=== PATIENT | female | born 1995 | race Asian ===

== ENCOUNTER 2017-07-05 17:55 | Emergency (ER) | payer OTHER ==
[~2017-07-05] VITALS: Ht 171.5 cm; Wt 60.3 kg
[2017-07-05 18:11] VITALS: TEMP 36.8; Ht 171.5 cm; Wt 60.3 kg
[2017-07-05] MEDS ORDERED: ONDA4TAB46 PO (19:25)
[2017-07-05] MEDS ORDERED: ONDANSETRON INJ 2 MG/ML 2 ML VIAL IV STA (19:36)
[2017-07-05] MEDS ORDERED: SODIUM CHLORIDE 0.9% 1000ML 1,000 ML IV STA (19:36)
--- NOTE | 2017-07-05 19:55 | EMERGENCY ROOM VISIT NOTE ---
History Report prepared by rAacelis: Deidre Aleman Under the Supervision of: Dr. Julian Collier M.D. First contact with patient: 19:15 Chief Complaint: VOMITING Stated Complaint: ABDOMINAL PAIN, POSSIBLE BLOCKAGE- [facility] Nursing Triage Summary: Vomitting last four days, worsening today. Today vomitted 6 times. C/o nausea and dizziness. History of Present Illness The patient is a 21 year old female who presents to the Emergency Room with complaints of vomiting beginning four days ago. The patient reports six episodes of vomiting today. She states her vomit was yellow in color. She denies any vaginal bleeding, blood in her vomit, chest pain, shortness of breath , abdominal pain, or fever. She denies any episodes of syncope. The patient is but she is unsure of how far along she is. The patient's last menstrual period was May 20. Source of History: patient Onset: today Position: other (generalized) Quality: other (vomiting) Timing: other (episoded) Associated Symptoms: + vomiting, No fevers, No abdominal pain Review of Systems See HPI for pertinent positives and negatives. A total of ten systems were reviewed and were otherwise negative. Family History Patient reports no known family medical history. Social History Smoking Status: Never Smoker Marital Status: single Occupation Status: [employer] student Current/Historical Medications Scheduled Multivit-Min W/Fe-Fa (), 1 TAB PO DAILY Scheduled PRN Doxylamine-Pyridoxine (Diclegis), 1 TAB PO BID PRN for Nausea Ondansetron Hcl (Zofran), 4 MG PO TODAY PRN for Nausea Allergies Coded Allergies: No Known Allergies (Unverified , 07/05/17) Physical Exam Vital Signs Date Time Temp Pulse Resp B/P (MAP) Pulse Ox O2 Delivery O2 Flow Rate FiO2 07/05/17 22:05 65 18 98/60 99 07/05/17 20:43 67 18 96/59 98 Room Air 07/05/17 18:11 36.8 83 16 99/64 95 Room Air Physical Exam Physical Exam GENERAL: She is oriented to person, place, and time. She appears well- developed and well-nourished. She does not appear distressed. ____ HENT: Exam performed. Head: Normocephalic and atraumatic. Right Ear: External ear normal. No mastoid tenderness. Left Ear: External ear normal. No mastoid tenderness. Mouth/Throat: The oropharynx is clear and moist. No trismus in the jaw. No dental abscesses or uvula swelling. No oropharyngeal exudate or tonsillar abscesses. ____ EYES: Conjunctivae and EOM are normal. Pupils are equal, round, and reactive to light. Right eye exhibits no discharge. Left eye exhibits no discharge. No scleral icterus. ____ NECK: Normal range of motion. Neck supple. No JVD present. No spinous process tenderness present. No carotid bruit present. No rigidity. No tracheal deviation and normal range of motion present. No Brudzinski's sign and no Kernig 's sign noted. ____ CV: Normal rate, regular rhythm, normal heart sounds and intact distal pulses. There is no peripheral edema. Palpable radial pulses bue. ____ PULM/CHEST: Effort normal and breath sounds normal. No respiratory distress. No stridor. She has no wheezes. She has no rales. Chest Wall: She exhibits no tenderness. ____ ABD: The abdomen is soft. Bowel sounds are normal. She has no distension. No mass is present. There is no tenderness. There is no rebound, no guarding, no Schneider's sign and no tenderness at McBurney's point. Rovsig negative MUSC/SKEL: Normal range of motion. There is no peripheral edema, tenderness or deformity. LYMPH: No cervical adenopathy. ____ NEURO: She is alert and oriented to person, place, and time. She has normal strength. No cranial nerve deficit or sensory deficit. Coordination and gait normal. GCS eye subscore is 4. GCS verbal subscore is 5. GCS motor subscore is 6. cerbellar tests wnl. ____ SKIN: Skin is warm and dry. She is not diaphoretic. ____ PSYCH: She has a normal mood and affect. Her behavior is normal. Judgment and thought content normal. ____ Medical Decision & Procedures Laboratory Results 07/05/17 19:40 Red Blood Count 4.77, Mean Corpuscular Volume 85.3, Mean Corpuscular Hemoglobin 28.9, Mean Corpuscular Hemoglobin Concent 33.9, Mean Platelet Volume 9.2, Neutrophils (%) (Auto) 63.0, Lymphocytes (%) (Auto) 24.8, Monocytes (%) (Auto) 9.1, Eosinophils (%) (Auto) 2.6, Basophils (%) (Auto) 0.3, Neutrophils # (Auto) 5.49, Lymphocytes # (Auto) 2.16, Monocytes # (Auto) 0.79, Eosinophils # (Auto) 0.23, Basophils # (Auto) 0.03 07/05/17 19:40 Test 07/05/17 19:40 07/05/17 19:50 White Blood Count 8.72 K/uL (4.8-10.8) Red Blood Count 4.77 M/uL (4.2-5.4) Hemoglobin 13.8 g/dL (12.0-16.0) Hematocrit 40.7 % (37-47) Mean Corpuscular Volume 85.3 fL (80-100) Mean Corpuscular Hemoglobin 28.9 pg (25-34) Mean Corpuscular Hemoglobin Concent 33.9 g/dl (32-36) Platelet Count 311 K/uL (130-400) Mean Platelet Volume 9.2 fL (7.4-10.4) Neutrophils (%) (Auto) 63.0 % Lymphocytes (%) (Auto) 24.8 % Monocytes (%) (Auto) 9.1 % Eosinophils (%) (Auto) 2.6 % Basophils (%) (Auto) 0.3 % Neutrophils # (Auto) 5.49 K/uL (1.4-6.5) Lymphocytes # (Auto) 2.16 K/uL (1.2-3.4) Monocytes # (Auto) 0.79 K/uL (0.11-0.59) Eosinophils # (Auto) 0.23 K/uL (0-0.5) Basophils # (Auto) 0.03 K/uL (0-0.2) RDW Standard Deviation 41.0 fL (36.4-46.3) RDW Coefficient of Variation 13.1 % (11.5-14.5) Immature Granulocyte % (Auto) 0.2 % Immature Granulocyte # (Auto) 0.02 K/uL (0.00-0.02) Anion Gap 6.0 mmol/L (3-11) Est Creatinine Clear Calc Drug Dose 132.4 ml/min Estimated GFR () 147.8 Estimated GFR (Non- 127.6 BUN/Creatinine Ratio 12.5 (10-20) Calcium Level 10.3 mg/dl (8.5-10.1) Influenza Type A Antigen Neg for Influ A (NEG) Influenza Type B Antigen Neg for Influ B (NEG) Urine Color YELLOW Urine Appearance CLEAR (CLEAR) Urine pH 5.5 (4.5-7.5) Urine Specific [place] 1.013 (1.000-1.030) Urine Protein NEG (NEG) Urine Glucose (UA) NEG (NEG) Urine Ketones NEG (NEG) Urine Occult Blood NEG (NEG) Urine Nitrite NEG (NEG) Urine Bilirubin NEG (NEG) Urine Urobilinogen NEG (NEG) Urine Leukocyte Esterase LARGE (NEG) Urine WBC (Auto) >30 /hpf (0-5) Urine RBC (Auto) 0-4 /hpf (0-4) Urine Hyaline Casts (Auto) 1-5 /lpf (0-5) Urine Epithelial Cells (Auto) >30 /lpf (0-5) Urine Bacteria (Auto) NEG (NEG) Urine Test POS (NEG) Laboratory results reviewed by me Medications Administered Medications (Trade) Dose Ordered Sig/Yovana Route Start Time Stop Time Status Last Admin Dose Admin Sodium Chloride 1,000 ml @ 999 mls/hr Q1H1M STAT IV 07/05/17 19:36 07/05/17 20:36 DC 07/05/17 19:45 999 MLS/HR Ondansetron HCl (Zofran Inj) 4 mg NOW STAT IV 07/05/17 19:36 07/05/17 19:38 DC 07/05/17 19:45 4 MG ED Course 1933: The patient was evaluated in room C8. A complete history and physical exam was performed. 1935: Ordered Zofran Inj 4 mg IV, Sodium Chloride 1000 ml @ 999 mls/hr IV. 2138: Vital signs are stable. Blood pressure is stable, patient is petite. Serial abdominal exams revealed no tenderness. PO was tolerated in the ED, patient will be discharged home 2158: DISCHARGE - Plan of care discussed with patient and questions answered. The patient was given both verbal and printed discharge instructions. The patient verbalized understanding and ability to comply. The patient is to seek outpatient follow up as noted in the discharge instructions. The patient verbalized understanding and ability to comply. The patient is discharged in stable condition. The patient was instructed to return for worsening symptoms. Medical Decision Vital signs are stable. Blood pressure is stable, patient is petite. Labs within normal limits. Serial abdominal exams revealed no tenderness. PO was tolerated in the ED, patient will be discharged home Medication Reconcilliation Current Medication List: was personally reviewed by me Blood Pressure Screening Patient's blood pressure: Normal blood pressure Impression Primary Impression: Nausea and vomiting Scribe Attestation The scribe's documentation has been prepared under my direction and personally reviewed by me in its entirety. I confirm that the note above accurately reflects all work, treatment, procedures, and medical decision making performed by me. The chart was completed utilizing [employer] Speech voice recognition software. Grammatical errors, random word insertions, pronoun errors, and incomplete sentences are an occasional consequence of this system due to software limitations, ambient noise, and hardware issues. Any formal questions or concerns about the content, text, or information contained within the body of this dictation should be directly addressed to the physician for clarification. Departure Information Dispostion Home / Self-Care Prescriptions Multivit-Min W/Fe-Fa () 1 Tab Tab 1 TAB PO DAILY for 90 Days, #90 TAB 3 Refills Prov: Julian Collier M.D. 07/05/17 Doxylamine-Pyridoxine (DICLEGIS) 1 Tab Tab 1 TAB PO BID Y for Nausea, #14 TAB Prov: Julian Collier M.D. 07/05/17 Referrals No Doctor, Assigned (PCP) Forms HOME CARE DOCUMENTATION FORM, IMPORTANT VISIT INFORMATION Patient Instructions ED Nausea Vomiting, My [facility] Additional Instructions Return to the emergency department if you develop fever greater than 100.4, lower abdominal cramping, vaginal bleeding, vaginal discharge, bloody vomit, bloody urine, bloody stools, or lose consciousness. Follow-up with [facility]. Problem Qualifiers Primary Impression: Nausea and vomiting Vomiting type: unspecified Vomiting Intractability: non-intractable Qualified Codes: R11.2 - Nausea with vomiting, unspecified
[2017-07-05 19:57] LABS: BASO % 0.3 %; BASO ABS # 0.03 K/uL (0-0.2); EOS % 2.6 %; EOS ABS # 0.23 K/uL (0-0.5); HEMATOCRIT 40.7 % (37-47); HEMOGLOBIN 13.8 g/dL (12.0-16.0); IG# 0.02 K/uL (0.00-0.02); LYMPH % 24.8 %; LYMPH ABS # 2.16 K/uL (1.2-3.4); MEAN CELL VOLUME 85.3 fL (80-100); MEAN CORPUSCULAR HEMOGLOBIN 28.9 pg (25-34); MEAN CORPUSCULAR HGB CONC 33.9 g/dl (32-36); MEAN PLATELET VOLUME 9.2 fL (7.4-10.4); MONO % 9.1 %; MONO ABS # 0.79 K/uL (0.11-0.59); NEUT ABS # 5.49 K/uL (1.4-6.5); PLATELET COUNT 311 K/uL (130-400); RED CELL DISTRIBUTION WIDTH CV 13.1 % (11.5-14.5); WHITE BLOOD COUNT 8.72 K/uL (4.8-10.8)
[2017-07-05 20:18] LABS: CALCIUM 10.3 mg/dl (8.5-10.1); CREATININE 0.64 mg/dl (0.60-1.20); POTASSIUM 3.8 mmol/L (3.5-5.1)
[2017-07-05 20:33] LABS: INFLUENZA B ANTIGEN Neg for Influ B (NEG)
[2017-07-05] MEDS ORDERED: DOXY30TA PO (21:52)
[2017-07-05] MEDS ORDERED: PRENTAB65 PO (21:53)
[2017-07-05 22:05] VITALS: BP 98/60; PULSE 65; O2SAT 99
== END 2017-07-05 21:55 | disposition home or self-care (01) ==
LOC: C.EDB 17:57 → C.EDC 21:55
DX: R11.2 Nausea with vomiting, unspecified (principal)

== ENCOUNTER → 2017-07-11 | Outpatient (CLI) | payer OTHER ==
[~2017-07-11] MED LIST: DOXY30TA PO; ONDA4TAB46 PO; PRENTAB65 PO
== END | disposition home or self-care (01) ==
LOC: C.LABSPEC 16:31
PROVIDERS: ATTEND Obstetrics & Gynecology
DX: Z34.01 Encounter for supervision of normal first pregnancy, first trimester (principal)

== ENCOUNTER → 2017-07-11 | Outpatient (CLI) | payer OTHER | END | disposition home or self-care (01) | LOC: C.PAPS 10:00 | PROVIDERS: ATTEND Obstetrics & Gynecology | DX: Z34.01 Encounter for supervision of normal first pregnancy, first trimester (principal); Z3A.00 Weeks of gestation of pregnancy not specified ==